=== PATIENT | male | born 1995 | race Hispanic/Latino ===

== ENCOUNTER 2017-08-26 13:31 | Emergency (ER) | payer MEDICAID, OTHER ==
[2017-08-26] MEDS ORDERED: MAG HYDROX/AL HYDROX/SIMETH ES 30 ML SUSP UDCUP ONE (14:41)
[2017-08-26] MEDS ORDERED: LIDOCAINE HCL 2% VISCOUS 15 ML UDCUP ONE (14:41)
[2017-08-26] MEDS ORDERED: DICYCLOMINE HCL 10 MG/ML 2ML AMP IM ONE (14:42)
== END 2017-08-26 17:10 | disposition home or self-care (01) ==
LOC: EDH 13:31
DX: K29.70 Gastritis, unspecified, without bleeding (principal); K21.9 Gastro-esophageal reflux disease without esophagitis; Z72.0 Tobacco use
CPT/HCPCS: 76705; 96372; 99284; J0500